=== PATIENT | male | born 1975 | race Caucasian/White ===

== ENCOUNTER 2022-05-09 08:25 | Outpatient (CLI) | payer BC, SELFPAY ==
[2022-05-09 12:25] LABS: Chloride* 108 mmol/L (96-114)
[2022-05-09 12:26] LABS: Potassium* 4.1 mmol/L (3.6-5.1); Sodium* 143 mmol/L (135-149)
[2022-05-09 12:28] LABS: Cholesterol* 116 mg/dL (90-199); Creatinine* 0.8 mg/dL (0.5-1.5); Estimated Glomerular Filt Rate 109 ml/min
[2022-05-09 12:29] LABS: Blood Urea Nitrogen* 14 mg/dL (5-24); Calcium* 8.9 mg/dL (8.4-10.6); Carbon Dioxide* 27 mmol/L (20-32); Glucose* 111 mg/dL (60-115); Triglycerides* 131 mg/dL (40-149)
[2022-05-09 12:30] LABS: HDL Cholesterol* 38 mg/dL (>=40); LDL Cholesterol Calculated 52 mg/dL (<100)
== END 2022-05-09 08:26 | disposition home or self-care (01) ==
PROVIDERS: PCP Family Medicine; Visit Provider Family Medicine
DX: Z00.00 Encounter for general adult medical examination without abnormal findings (principal); I10 Essential (primary) hypertension; E78.5 Hyperlipidemia, unspecified
CPT/HCPCS: 80048; 80061

== ENCOUNTER 2024-03-30 15:23 | Outpatient (CLI) | payer BC, SELFPAY | END 2024-03-30 15:24 | disposition home or self-care (01) | PROVIDERS: PCP Family Medicine; Visit Provider Family Medicine | DX: E78.5 Hyperlipidemia, unspecified (principal); R10.11 Right upper quadrant pain; Z12.5 Encounter for screening for malignant neoplasm of prostate | CPT/HCPCS: 80053; 80061; G0103 ==